=== PATIENT | female | born 1990 | race Caucasian/White ===

== ENCOUNTER 2019-02-09 14:17 | Emergency (ER) | payer OTHER ==
[~2019-02-09] VITALS: Ht 160 cm; Wt 59.0 kg
[~2019-02-09 14:17] MED LIST: ACET325 PO; BUPRENORPHIN-N1 EACH SL; Bactrim Ds Tab1 EACH PO; Keflex500 MG PO; Naprosyn500 MG PO; ONDA4ODT MM; PNV PRENATAL P1 EACH PO; SERT25 PO; SUBOXONE 4 MG-1 EACH SL; Senna8.6 MG PO; TRIA15CR3 TOP; Vibramycin100 MG PO; Yaz 28 Tablet1 EACH PO
== END 2019-02-09 16:05 | disposition home or self-care (01) ==
LOC: ER 14:17
DX: L02.412 Cutaneous abscess of left axilla (principal); R51 Headache; Z88.5 Allergy status to narcotic agent; Z79.899 Other long term (current) drug therapy; F17.210 Nicotine dependence, cigarettes, uncomplicated
CPT/HCPCS: 76882; 99283-25

== ENCOUNTER 2019-02-11 17:56 | Emergency (ER) | payer OTHER ==
[~2019-02-11] VITALS: Ht 160 cm; Wt 59.0 kg
[2019-02-11 19:52] LABS: Hematocrit 36.5 % (33.0-51.0); Hemoglobin 12.1 g/dL (11.5-16.0); Mean Corpuscular HGB 31.3 pg (26.0-34.0); Mean Corpuscular HGB Conc 33.2 g/dL (31.5-36.5); Mean Corpuscular Volume 94 fL (80-100); Mean Platelet Volume 10.7 fL (9.1-12.4); Platelet Count 158 K/mm3 (150-400); RDW Coefficient Variation 13.2 % (11.7-14.2); RDW Standard Deviation 45.2 fL (35.1-46.3); Red Blood Cell Count 3.87 M/mm3 (3.80-5.20); White Blood Cell Count 7.78 K/mm3 (4.00-11.30)
[2019-02-11 20:20] LABS: BAND PERCENT MAN 30 % (0-8); BASOPHILS ABSOLUTE MAN 0.07 K/mm3 (0.00-0.23); BASOPHILS PERCENT MAN 1 % (0-2); EOSINOPHILS ABSOLUTE MAN 0.15 K/mm3 (0.00-0.68); EOSINOPHILS PERCENT MAN 2 % (0-6); LYMPHOCYTES ABSOLUTE MAN 0.77 K/mm3 (0.84-5.20); LYMPHOCYTES PERCENT MAN 10 % (21-46); MONOCYTES PERCENT MAN 0 % (4-13); NEUTROPHILS ABSOLUTE MAN 6.76 K/mm3 (1.96-9.15); SEG NEUTROPHILS PERCENT MAN 57 % (41-73); TOTAL CELLS COUNTED 100
[2019-02-11 20:31] LABS: Albumin, Blood 3.8 g/dL (3.4-5.0); Albumin/Globulin Ratio 0.9 (0.8-1.8); Bilirubin, Total 0.5 mg/dL (0.1-1.0); Bun/Creatinine Ratio 21.3 (12.0-20.0); Calcium, Blood 8.5 mg/dL (8.5-10.1); Creatinine, Blood 1.36 mg/dL (0.40-1.00); Globulin, Blood 4.1 g/dL (2.2-4.0); Potassium, Blood 3.6 mmol/L (3.5-5.5); Total Protein, Blood 7.9 g/dL (6.4-8.2)
[2019-02-11 20:38] LABS: C-Reactive Protein, High Sens. 61.7 mg/L (0.000-3.000)
[2019-02-11 20:43] LABS: Source, Urine Clean Catch
[2019-02-11 20:47] LABS: Appearance, Urine Hazy (Clear); Bilirubin, Urine 2+ (Neg); Blood, Urine 1+ (Neg); Color, Urine Amber (P-Yellow); Glucose Qualitative, Urine Neg (Neg); Ketones, Urine 1+ (Neg); Leukocyte Esterase, Urine 1+ (Neg); Nitrite, Urine Neg (Neg); Protein, Urine 2+ (Neg); Specific Gravity, Urine 1.015 (1.003-1.022); Urobilinogen, Urine 1+ (Normal)
[2019-02-11 20:53] LABS: Bacteria Many /hpf; Red Blood Cells, Urine 0-2 /hpf (0-2); Squamous Epithelial Cells Few /hpf (Few); White Blood Cells, Urine TNTC /hpf (0-5)
[2019-02-11] MEDS ORDERED: Prednisone20 MG PO (21:50)
[2019-02-11] MEDS ORDERED: ONDA4ODT MM (21:50)
[2019-02-11] MEDS ORDERED: CEFD300 PO (21:50)
== END 2019-02-11 23:00 | disposition home or self-care (01) ==
LOC: ER 17:56
PROVIDERS: Emergency Medicine; Physician Assistant
DX: L03.112 Cellulitis of left axilla (principal); L27.0 Generalized skin eruption due to drugs and medicaments taken internally; T36.8X5A Adverse effect of other systemic antibiotics, initial encounter; N39.0 Urinary tract infection, site not specified; R11.2 Nausea with vomiting, unspecified; Z88.5 Allergy status to narcotic agent; Z79.899 Other long term (current) drug therapy; F17.210 Nicotine dependence, cigarettes, uncomplicated
CPT/HCPCS: 36415; 71046; 80053; 81001; 81025; 83605; 84145; 85025; 85651; 86141; 86308; 87081; 87086; 87430; 96361; 96365; 96375; 99283-25; A9270-GY; J0696; J1200; J2930; J7030

== ENCOUNTER 2020-10-07 20:14 | Emergency (ER) | payer OTHER ==
[~2020-10-07] VITALS: Ht 160 cm; Wt 54.4 kg
[~2020-10-07 20:14] MED LIST changes: +CEFD300 PO; +Prednisone20 MG PO
[2020-10-07] MEDS ORDERED: Cephalexin500 M1 PO (23:35)
== END 2020-10-08 00:13 | disposition home or self-care (01) ==
LOC: ER 20:14
DX: L03.115 Cellulitis of right lower limb (principal); F17.210 Nicotine dependence, cigarettes, uncomplicated; Z88.5 Allergy status to narcotic agent; Z88.2 Allergy status to sulfonamides; Z88.1 Allergy status to other antibiotic agents; Z79.52 Long term (current) use of systemic steroids
CPT/HCPCS: 73590; 73600; 99283-25; A9270

== ENCOUNTER 2021-01-30 06:06 | Emergency (ER) | payer OTHER ==
[~2021-01-30] VITALS: Ht 160 cm; Wt 54.4 kg
[~2021-01-30 06:06] MED LIST changes: +Cephalexin500 M1 PO
[2021-01-30] MEDS ORDERED: Mupirocin22 GM TOP (07:56)
[2021-01-30] MEDS ORDERED: CEPH500 PO (07:56)
[2021-01-30] MEDS ORDERED: CLIN300 PO (07:56)
== END 2021-01-30 08:10 | disposition home or self-care (01) ==
LOC: ER 06:06
DX: N61.1 Abscess of the breast and nipple (principal); I88.9 Nonspecific lymphadenitis, unspecified
CPT/HCPCS: 10061; 99282-25; A9270

== ENCOUNTER 2021-09-05 18:25 | Emergency (ER) | payer OTHER ==
[~2021-09-05 18:25] MED LIST changes: +CEPH500 PO; +CLIN300 PO; +Mupirocin22 GM TOP
== END 2021-09-05 18:40 ==
LOC: ER 18:25
DX: Z53.21 Procedure and treatment not carried out due to patient leaving prior to being seen by health care provider (principal)

== ENCOUNTER 2022-08-20 17:32 | Emergency (ER) | payer OTHER ==
[2022-08-20] MEDS ORDERED: CEFD300 PO (21:37)
== END 2022-08-20 21:47 | disposition home or self-care (01) ==
DX: R55 Syncope and collapse (principal); F17.210 Nicotine dependence, cigarettes, uncomplicated; Z88.5 Allergy status to narcotic agent; Z88.8 Allergy status to other drugs, medicaments and biological substances; Z79.899 Other long term (current) drug therapy

== ENCOUNTER 2023-11-04 06:02 | Inpatient (IN) | payer OTHER ==
[2023-11-04] VITALS (14 sets, daily range): BP systolic 107–140; BP diastolic 67–92
[2023-11-04] MEDS ORDERED: Oxytocin 10 Unit / ML Vial ONE (06:06)
[2023-11-04] MEDS ORDERED: LR Oxytocin 20 Units 1,000 ML IV ONE (06:12)
[2023-11-04] MEDS ORDERED: Lactated Ringer's 1,000 ML IV PRN (06:20)
[2023-11-04] MEDS ORDERED: LR Oxytocin 20 Units 1,000 ML IV SCH ×2 (06:20→07:05)
[2023-11-04] MEDS ORDERED: Misoprostol 200 MCG Tab PR SCH (06:20)
[2023-11-04] MEDS ORDERED: Lidocaine HCl 1% 30 ML SDV XX SCH (06:20)
[2023-11-04] MEDS ORDERED: Castor Oil 59.146 ML BTL TOP SCH (06:20)
[2023-11-04] MEDS ORDERED: Bupivacaine HCl 2.5 MG/ML 10ML P/F Injection XX SCH (06:20)
[2023-11-04] MEDS ORDERED: Methylergonovine Maleate 0.2MG / ML 1ML Amp IM SCH (06:20)
[2023-11-04] MEDS ORDERED: Oxytocin 10 Unit / ML Vial IM SCH (06:20)
[2023-11-04] MEDS ORDERED: Bupivacaine 0.5% HCl 5 MG/ML 30MLVIAL XX SCH (06:20)
[2023-11-04] MEDS ORDERED: Measles/Mumps/Rubella Vaccine 0.5 ML Vial SC SCH (07:00)
[2023-11-04] MEDS ORDERED: Witch Hazel/Glycerin PADS TOP PRN (07:05)
[2023-11-04] MEDS ORDERED: HyDROXyzine HCl 25 MG Tab PO PRN (07:05)
[2023-11-04] MEDS ORDERED: FLU VACC QS2023-24(6MOS UP)/PF 60 MCG/0.5 ML SYRINGE IM SCH (07:05)
[2023-11-04] MEDS ORDERED: Lactated Ringer's 1,000 ML IV SCH (07:05)
[2023-11-04] MEDS ORDERED: Ibuprofen 400 MG Tab PO PRN (07:05)
[2023-11-04] MEDS ORDERED: Carboprost Tromethamine 250 MCG/ML 1ML Amp IM PRN (07:05)
[2023-11-04] MEDS ORDERED: Misoprostol 200 MCG Tab PR PRN (07:10)
[2023-11-04] MEDS ORDERED: Calcium Carbonate 500 MG Tab Chew PO PRN (07:10)
[2023-11-04] MEDS ORDERED: Ondansetron 4 MG SoluTab MM PRN (07:10)
[2023-11-04] MEDS ORDERED: Rho(D) Immune Globulin 300 MCG / SYR IM ONE (07:10)
[2023-11-04] MEDS ORDERED: Methylergonovine Maleate 0.2MG / ML 1ML Amp IM PRN (07:10)
[2023-11-04] MEDS ORDERED: Benzocaine Topical Anesthetic Spray 60GM TOP PRN (07:10)
[2023-11-04] MEDS ORDERED: Acetaminophen 325 MG TABLET PO PRN (07:15)
[2023-11-04] MEDS ORDERED: Lanolin Cream TOP PRN (07:15)
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
[2023-11-04] MEDS ORDERED: Ketorolac Tromethamine 30mg Vial IV SCH (08:00)
[2023-11-04 08:06] LABS: BASOPHILS ABSOLUTE AUTO 0.08 K/mm3 (0.00-0.23); BASOPHILS PERCENT AUTO 0 % (0-2); EOSINOPHILS ABSOLUTE AUTO 0.01 K/mm3 (0.00-0.68); EOSINOPHILS PERCENT AUTO 0 % (0-6); Hemoglobin 9.6 g/dL (11.5-16.0); IMMATURE GRAN ABSOLUTE AUTO 0.22 K/mm3 (0.00-0.10); IMMATURE GRAN PERCENT AUTO 1 % (0-1); LYMPHOCYTES ABSOLUTE AUTO 1.67 K/mm3 (0.84-5.20); LYMPHOCYTES PERCENT AUTO 6 % (21-46); MONOCYTES ABSOLUTE AUTO 1.23 K/mm3 (0.16-1.47); MONOCYTES PERCENT AUTO 5 % (4-13); Mean Corpuscular HGB 28.6 pg (26.0-34.0); Mean Corpuscular Volume 89 fL (80-100); NEUTROPHILS ABSOLUTE AUTO 23.02 K/mm3 (1.96-9.15); NEUTROPHILS PERCENT AUTO 88 % (41-73); Platelet Count 426 K/mm3 (150-400); RDW Coefficient Variation 13.5 % (11.7-14.2); Red Blood Cell Count 3.36 M/mm3 (3.80-5.20); White Blood Cell Count 26.23 K/mm3 (4.00-11.30)
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
[2023-11-04] MEDS ORDERED: Prenatal Vit/FE Fumarate/FA 1 Tab PO SCH (09:00)
--- NOTE | 2023-11-04 10:33 | NUR ---
pt had to be awakenede to get up to br. consented for utox.
--- NOTE | 2023-11-04 11:11 | NUR ---
Trisha CPS worker out of room and off unit. per trisha a normal non after hours person will be here tomorrow to see caio. Caio dozed back off and is sleeping again now. Paperwork on certificate provided and asked pt. to fill out when she had a name picked out for baby. Caio still has not inquired or asked about how her is doing or showed any interest regarding her.
[2023-11-04 12:48] LABS: U Amphetamine Screen DETECTED; U Barbituate Screen Not Detected; U Benzodiazapine Screen Not Detected; U Buprenorphine Screen Not Detected; U Cannabinoids Screen Not Detected; U Cocaine Screen Not Detected; U Methadone Screen Not Detected; U Methamphetamine Screen Not Detected; U Opiates Screen Not Detected; U Oxycodone Screen Not Detected; U Phencyclidine Screen Not Detected
[2023-11-04] MEDS ORDERED: buprenorphine HCL 2 MG TAB.SUBL SL ONE (14:00)
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
[2023-11-04] MEDS ORDERED: buprenorphine HCL 2 MG TAB.SUBL SL PRN (14:20)
--- NOTE | 2023-11-04 15:46 | NUR ---
1510- Caio's friend Jeannette called unit multiple times saying that she was trying to get a hold of Caio to come pick her up from hospital. When I went in to talk to Caio I asked her if she was trying to leave and she said yes. I spoke with her regarding her request at 1400 to get clean and get into treatment. I told Caio we would treat her withdrawl symptoms and could help facilitate getting her resources and into rehab but in order for that to happen she needed to stay at the hospital and [facility] would also come in the morning to help her get resources. Caio sighed and blankly stared and wanted 10 minutes to think about her decision. I went back in 10 minutes later asking her what she decided and her friend Jeannette was on the phone again. Caio stated that she decided she wanted to leave without treatment and that her friend was going to come get her. I told her that she would be leaving AMA and she understood that and still said she wanted to leave. Dr Marte called and notified. Was on her way to fill out AMA paperwork with her however patient left before physician arrove to unit to go over risks and benefits. I did ask Caio to at least fill out the certificate paperwork to what she could and she said she would and named the baby Lisandro Villagomez. Caio never asked about her baby a single time, how she was, or any details regarding her. Left AMA with a female and male couple that had small child with them. IV removed. Trisha Ramirez CPS worker notified that patient was leaving AMA and baby remained at hospital in hospitals care. Per trisha, cps worker will be in to discuss plan tomorrow.
== END 2023-11-04 16:11 | disposition left against medical advice (07) | DRG 806 ==
LOC: OBS 06:02 → BC 06:08
PROVIDERS: ADMIT Obstetrics & Gynecology
PROC: 10E0XZZ Delivery of Products of Conception, External Approach (ICD-10-PCS; principal; 2023-11-04)
PROC: 0HQ9XZZ Repair Perineum Skin, External Approach (ICD-10-PCS; 2023-11-04)
PROC: 0UQMXZZ Repair Vulva, External Approach (ICD-10-PCS; 2023-11-04)
DX: O62.3 Precipitate labor (principal); O99.324 Drug use complicating childbirth; Z37.0 Single live birth; O99.334 Smoking (tobacco) complicating childbirth; F17.210 Nicotine dependence, cigarettes, uncomplicated; Z3A.28 28 weeks gestation of pregnancy; F11.90 Opioid use, unspecified, uncomplicated; Z88.8 Allergy status to other drugs, medicaments and biological substances; Z88.5 Allergy status to narcotic agent; O70.0 First degree perineal laceration during delivery
CPT/HCPCS: 36415; 85025; 86592; 86762; 86850; 86900; 86901; A9270; J1885; J2590